=== PATIENT | female | born 1980 | race African-American/Black ===

== ENCOUNTER 2024-12-08 01:23 | Emergency (ER) | payer BC, OTHER ==
[2024-12-08] MEDS ORDERED: Ketorolac Tromethamine 30 MG (1 mL) VIAL ONE (01:59)
== END 2024-12-08 02:21 ==
LOC: ERS 01:23
DX: K04.7 Periapical abscess without sinus (principal); K08.89 Other specified disorders of teeth and supporting structures; I10 Essential (primary) hypertension
CPT/HCPCS: 96372; 99282; J1885